=== PATIENT | female | born 1965 | race Caucasian/White ===

== ENCOUNTER 2017-06-17 05:55 | Observation (INO) | payer OTHER ==
[2017-06-16 15:03] VITALS: Ht 152.4 cm; Wt 79.5 kg
[~2017-06-17] VITALS: Ht 152.4 cm; Wt 79.5 kg
[2017-06-17] VITALS (23 sets, daily range): BP systolic 95–174; BP diastolic 56–90; PULSE 54–94; RESP 14–27
[~2017-06-17 05:55] MED LIST: HYDR12.58 PO
--- NOTE | 2017-06-17 07:54 | HPN ---
Date/Time of Note Date/Time of Note DATE: 06/17/17 TIME: 07:54 Interval H&P Admission Note Pt. seen H&P reviewed: No system changes ELVIA WILSON MD Jun 17, 2017 07:54
[2017-06-17] MEDS ORDERED: ONDANSETRON 4 MG INJ ONE (08:04)
[2017-06-17] MEDS ORDERED: FENTAnyl 50 MCG/ML VIAL ONE (08:04)
[2017-06-17] MEDS ORDERED: MIDAZOLAM 1 MG/ML 2 ML INJ ONE (08:04)
[2017-06-17] MEDS ORDERED: DEXAMETHASONE 4 MG/ML 1 ML INJ ONE (08:04)
[2017-06-17] MEDS ORDERED: ROCURONIUM 50 MG INJ ONE (08:04)
[2017-06-17] MEDS ORDERED: PROPOFOL 20 ML ONE (08:04)
[2017-06-17] MEDS ORDERED: CEFAZOLIN 1 GM INJ ONE (08:04)
[2017-06-17] MEDS ORDERED: GLYCOPYRROLATE 0.4 MG INJ ONE (08:04)
[2017-06-17] MEDS ORDERED: NEOSTIGMINE 3 MG/3 ML SYRINGE ONE (08:04)
[2017-06-17] MEDS ORDERED: ALBUTEROL 0.083% (NEB) 2.5 MG/3 ML AMP HHN PRN (09:00)
[2017-06-17] MEDS ORDERED: TRIMETHOBENZAMIDE 100 MG/ML VIAL IM PRN (09:00)
[2017-06-17] MEDS ORDERED: hydrALAzine 20 MG INJ IV PRN (09:00)
[2017-06-17] MEDS ORDERED: OXYCODONE/ACETAMINOPHEN (5/325) TAB PO PRN ×3 (09:00→13:00)
[2017-06-17] MEDS ORDERED: IPRATROPIUM (NEB) 0.5 MG/2.5 ML AMP HHN PRN (09:00)
[2017-06-17] MEDS ORDERED: ONDANSETRON 4 MG INJ IV PRN ×2 (09:00→13:00)
[2017-06-17] MEDS ORDERED: MIDAZOLAM 1 MG/ML 2 ML INJ IV PRN (09:00)
[2017-06-17] MEDS ORDERED: FENTAnyl 50 MCG/ML VIAL IV PRN ×2 (09:00)
[2017-06-17] MEDS ORDERED: HYDROmorphONE (0.2 MG/ML) 10ML SYG IV PRN ×3 (09:00)
[2017-06-17] MEDS ORDERED: MEPERIDINE 25 MG INJ IV PRN (09:00)
[2017-06-17] MEDS ORDERED: DIPHENHYDRAMINE 50 MG INJ IV PRN (09:00)
[2017-06-17] MEDS ORDERED: EPHEDrine SULFATE 50 MG/5 ML SYG IV PRN (09:00)
[2017-06-17] MEDS ORDERED: LABETALOL HCL 20MG INJ IV PRN (09:00)
--- NOTE | 2017-06-17 09:34 | SIPON ---
Date/Time of Note Date/Time of Note DATE: 06/17/17 TIME: 09:30 Operative Report Preoperative Diagnosis postmenopausal bleeding uterine fibroids Postoperative Diagnosis same as above see pathologic report Operation/Procedure Performed hysteroscopy\ resection of myoma uterine curettage endocervical curettage Surgeon see signature line practice assistant slava from [facility] Anesthesia: general Estimated blood loss: minimal Transfusion Required none Specimen ECC EMC Grafts/Implants none Complications none ELVIA WILSON MD Jun 17, 2017 09:34
--- NOTE | 2017-06-17 09:35 | PD.PPDC ---
[employer] Discharge Instruction Diagnosis Final Diagnosis: uterine fibroids and postmenopausal bleeding Condition Patient Condition: Stable Diet Diet: Resume Regular Diet Activity/Restrictions Activity: May Shower Restrictions: No Sexual Activity Nothing in the Vagina No [place] No Tampons, douche Follow-up Follow-up with Physician: 2, Week/Weeks Return to clinic for WORKERS COMPENSATION PARALEGAL Instructions: Fever greater than 101 Chills Worsening abdominal pain Excessive Vaginal Bleeding More than 2 pads per hour Unable to tolerate diet ELVIA WILSON MD Jun 17, 2017 09:35
[2017-06-17] MEDS: FENTAnyl 50 MCG/ML VIAL IV PRN ×2 (09:43→09:53)
[2017-06-17] MEDS ORDERED: LACTATED RINGER'S 1,000 ML IV SCH (13:00)
[2017-06-17] MEDS: OXYCODONE/ACETAMINOPHEN (5/325) TAB PO PRN ×2 (18:53→20:24)
[2017-06-18 02:16] VITALS: BP 118/65; RESP 20
[2017-06-18 08:48] VITALS: BP 111/54; RESP 16
[2017-06-18 10:52] LABS: ADD UMIC YES; UR ASCORBIC ACID NEGATIVE (NEGATIVE); UR BILIRUBIN (Dip) NEGATIVE (NEGATIVE); UR BLOOD (Dip) 3+ mg/dL (NEGATIVE); UR CLARITY CLEAR (CLEAR); UR COLOR STRAW (YELLOW); UR GLUCOSE (Dip) NEGATIVE (NEGATIVE); UR KETONES (Dip) NEGATIVE (NEGATIVE); UR LEUKOCYTE ESTERASE (Dip) NEGATIVE Leu/ul (NEGATIVE); UR NITRITE (Dip) NEGATIVE (NEGATIVE); UR RBC 28 /HPF (0-5); UR SPECIFIC GRAVITY (Dip) 1.006 (1.003-1.030); UR TOTAL PROTEIN (Dip) NEGATIVE (NEGATIVE); UR UROBILINOGEN (Dip) NEGATIVE (NEGATIVE)
[2017-06-18] MEDS: OXYCODONE/ACETAMINOPHEN (5/325) TAB PO PRN (11:26)
--- NOTE | 2017-06-20 01:44 | OPR ---
DATE OF OPERATION: 06/17/2017 PREOPERATIVE DIAGNOSES: Postmenopausal bleeding and uterine fibroid. POSTOPERATIVE DIAGNOSES: See pathological report. Small intramural fibroid protruding the cavity and endometrial polyp and endocervical polyp. PROCEDURE: Hysteroscopy, resection of myoma, resection of endometrial polyp, cervical polypectomy, endocervical curettage and endometrial curettage. ANESTHESIA: General. ANESTHESIOLOGIST: Dr. Posey, refer to the chart SURGEON: Ladonna Yoder MD CATTLE FEEDER: Medardo from [facility] DESCRIPTION OF PROCEDURE: Under proper induction of general anesthesia, the patient was placed in dorsal lithotomy position. Perineal area and vagina wall was prepped and draped in usual aseptic manner. On inspection, external genitalia revealed no gross abnormality. Bimanual examination was done, it was inadequate due to the body habitus. Weighted speculum introduced into the vagina. Anterior lip of cervix was grasped with a single-tooth tenaculum. Endocervix revealed_ small endocervical polyp, which was removed by Kevorkian forceps and the ECC was done. Cavity was sounded, which was 11 cm in depth and small size 6 hysteroscope was introduced after the proper preparation done, and fundus was identified and both ostium were visualized. Close to the left ostium , there was a small endometrial polyp noted. Soft tissue resector was used for removal of this polyp which was resected and there was, on the fundus, appeared to be intramural fibroid which was protruding through the cavity, which was resected by using hot resector, which was shaved, and the rest of the endometrial cavity was curetted with obtaining of small amount of tissue, which was retrieved in the retrieval system. Procedure was completed. All the instruments were removed from the operative field. Fluid deficit was 350. The patient withstood procedure well, sent to the recovery room in stable condition. Dictated By: LADONNA TUTTLE/LETTY Conf#: [id number] DID#: [id number] LISA
== END 2017-06-18 13:45 | disposition home or self-care (01) ==
LOC: SDS 05:55 → MS1 11:30 → SDS 11:30 → MS1 13:27
PROVIDERS: ADMIT Obstetrics & Gynecology; ATTEND Obstetrics & Gynecology
DX: D25.9 Leiomyoma of uterus, unspecified (principal); D26.1 Other benign neoplasm of corpus uteri; I10 Essential (primary) hypertension; J45.909 Unspecified asthma, uncomplicated
CPT/HCPCS: 58561; 81001; 87086; 88305; J0690; J1100; J1170; J2250; J2405; J2710; J3010; Z7500; Z7512; Z7610; G0378